=== PATIENT | male | born 1975 | race Hispanic/Latino ===

== ENCOUNTER 2021-01-30 12:03 | Emergency (ER) | payer SELFPAY ==
[~2021-01-30] VITALS: Ht 157.5 cm; Wt 104.3 kg
[2021-01-30] MEDS ORDERED: LISINOPRIL20 MG PO (13:40)
== END 2021-01-30 18:30 | disposition home or self-care (01) ==
LOC: ED 12:03
DX: R10.33 Periumbilical pain (principal); R30.0 Dysuria; K21.9 Gastro-esophageal reflux disease without esophagitis; E78.5 Hyperlipidemia, unspecified; I10 Essential (primary) hypertension; Z79.899 Other long term (current) drug therapy
CPT/HCPCS: 74177; 80053; 81001; 85025; 99284-25; Q9967